=== PATIENT | male | born 1945 | race Caucasian/White ===

== ENCOUNTER → 2017-01-05 | Outpatient (CLI) | payer MEDICARE, OTHER ==
[~2017-01-05] MED LIST: ALLO100T PO; AMIT24CA5 PO; ATRO0.06; BENA25CA2 PO; COLA100C3 PO; CRES10TA32 PO; GLUC500C5 PO; LORT5TAB PO; METR1GEL4 EX; MIRA3350 PO; PROP1TAB29 PO; TIMO0.5S4 OP
--- NOTE | 2017-01-05 09:50 | RADONC ---
RADIATION ONCOLOGY FOLLOWUP NOTE DATE: 01/05/2017 CHART NUMBER: [id number]. DIAGNOSIS: Right tonsillar cancer. STAGE: I, T1N0M0. ECOG PERFORMANCE STATUS: Zero. FOLLOWUP NOTE: Mr. 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 The patient presents today reporting that he is doing quite well with no complaints at this time related to his radiation therapy or disease. He is having no difficulty swallowing or pain. He has some slight xerostomia. REVIEW OF SYSTEMS: The patient's review of systems is positive for some slight xerostomia but is otherwise noncontributory. The patient's review of systems is noncontributory. Denies nausea, vomiting, fevers, chills, night sweats, diplopia, headaches, anxiety or depression, anorexia, weight loss, visual disturbances, chest pain, urinary or bowel difficulties, bone pain, or neurological problems. PHYSICAL EXAMINATION: The patient's weight today is 203 pounds. This is up 5-1/2 pounds since his last visit in May. It is also up 10.5 pounds from his treatment completion date. HEENT: Exam is normocephalic, atraumatic. Extraocular movements are intact. The patient's oral cavity reveals no evidence of lesions nodularity or recurrent disease. His oropharynx is clear are as his tonsils. There is no palpable preauricular, cervical, supraclavicular, infraclavicular or axillary lymphadenopathy present. His lungs are clear to auscultation and percussion. ASSESSMENT: The patient is clinically ALOK at this time and will be seen by us again in 6 months for further followup. He is also continuing to be followed by his head and neck surgeon every few months. Laryngoscopic evaluation was deferred by us but is being done by his ENT physician. cc: Ramirez Larry MD *Zenia Murillo MD
== END ==
LOC: M ONCR 09:09
PROVIDERS: ATTEND Radiology Radiation Oncology
DX: C09.1 Malignant neoplasm of tonsillar pillar (anterior) (posterior) (principal)

== ENCOUNTER → 2017-03-23 | Outpatient (REF) | payer MEDICARE, OTHER ==
[~2017-03-23] MED LIST changes: -AMIT24CA5 PO; +AMIT24CA7 PO; -COLA100C3 PO; +COLA100C5 PO
== END ==
LOC: M LAB REF 12:18
PROVIDERS: ATTEND Internal Medicine
DX: R06.02 Shortness of breath (principal)

== ENCOUNTER → 2017-03-30 | Outpatient (CLI) | payer MEDICARE, OTHER ==
--- NOTE | 2017-03-30 22:19 | REP ---
PET/CT: History: Diagnosing lung carcinoma. Comparisons: Comparison CT study March 25, 2017. Pleural based mass lesion right middle lobe. TECHNIQUE: 47 minutes following the intravenous injection of a 10.7 mCi dose of F-18 FDG, three-dimensional PET scintigraphy is acquired from the skull base to the proximal thighs. Triplanar noncontrast CT scanning is acquired through the same anatomic range for attenuation correction, and image registration with scan parameters optimized to minimize radiation exposure to the patient. PET scintigraphy and CT datasets were fused and displayed on a workstation with multiplanar and projection display capability. PET/CT Findings: There is low level FDG accumulation in the peripheral pleural-based area of consolidation in the right middle lobe of the lung. Maximum standard uptake value is 5.9. This is most prominent in the medial aspect of this opacity. The opacity is essentially unchanged from the March 25, 2017 prior study. No definite mass lesion is seen here. No other abnormal thoracic hypermetabolic uptake is seen. No abnormal vascular uptake is seen. In the abdomen and pelvis normal FDG distribution is observed. Impression: Mildly hypermetabolic uptake in the peripheral wedge shaped infiltrate in the right middle lobe anteriorly. Malignancy cannot be excluded. Other differential possibilities include pneumonia and pulmonary infarction. No other abnormal hypermetabolic uptake is appreciated. Signed by Major Mercedes MD 03/31/2017 09:34 A
== END ==
LOC: M PLARAD 13:28
PROVIDERS: ATTEND Internal Medicine
DX: R91.8 Other nonspecific abnormal finding of lung field (principal)
CPT/HCPCS: 78815; A9552

== ENCOUNTER → 2017-04-06 | Outpatient (CLI) | payer MEDICARE, OTHER ==
--- NOTE | 2017-04-06 13:20 | REP ---
BILATERAL LOWER EXTREMITY DUPLEX VEINS: HISTORY: Chest pain. RIGHT LOWER EXTREMITY: There are no filling defects in the deep venous system. The deep venous system is patent. IMPRESSION: There is no deep venous thrombosis. LEFT LOWER EXTREMITY: There are no filling defects in the deep venous system. The deep venous system is patent. A small ill-defined area of increased echogenicity is present in the anterior thigh musculature. . This measures 4.2 x 1 x 1.4 cm and is of unknown etiology. IMPRESSION: 1. There is no deep venous thrombosis. 2. There is a 4.2 cm ill-defined area of increased echogenicity in the anterior thigh musculature of uncertain etiology. Signed by Hasmukh Short MD 04/06/2017 01:49 P
== END ==
LOC: M RAD 11:42
PROVIDERS: ATTEND Internal Medicine Pulmonary Disease
DX: R07.1 Chest pain on breathing (principal)

== ENCOUNTER → 2017-04-12 | Outpatient (CLI) | payer MEDICARE, OTHER ==
--- NOTE | 2017-04-12 12:50 | REP ---
CT of the left femur: Comparison is the deep vein duplex ultrasound dated 04/06/2017 that identified a 4.2 cm zone of ill-defined increased echogenicity in the anterior left thigh musculature of uncertain etiology. On the CT study today, no soft tissue mass or abnormality is identified anteriorly in the left thigh. There is no mass, cyst, periosteal reactive change lytic, blastic or destructive change in the femur. Impression: Negative CT of the left femur. Consider MRI for follow up. Signed by Danny Lorenzana MD 04/12/2017 12:41 P
== END ==
LOC: M RAD 10:10
PROVIDERS: ATTEND Internal Medicine Pulmonary Disease
DX: R93.7 Abnormal findings on diagnostic imaging of other parts of musculoskeletal system (principal)

== ENCOUNTER 2017-12-12 05:35 | Day surgery (SDC) | payer MEDICARE, OTHER ==
[2017-12-12] MEDS ORDERED: SLF 3 ML SYR IV (06:00)
[2017-12-12] MEDS ORDERED: ACETAMINOPHEN 325 MG TAB PO (06:00)
[2017-12-12] MEDS: LIDOCAINE 3.5 % 1ML OPHTH TOPICAL GEL OU (06:25)
[2017-12-12] MEDS: CYCLOPENTOLATE 2% OPHTH SOLN 2ML BTL OD (06:28)
[2017-12-12] MEDS: TROPICAMIDE 1% OPHTH SOLN 2ML OD (06:28)
[2017-12-12] MEDS: PHENYLEPHRINE 2.5% OPHTH SOL 2ML OD (06:28)
[2017-12-12] MEDS: OFLOXACIN 0.3 % (OCUFLOX) OPTH SOL 5ML OD (06:28)
[2017-12-12] MEDS: SLF 3 ML SYR IV (06:50)
[2017-12-12] MEDS ORDERED: PHENYLEPHRINE HCL 10 % OPHTH. SOL 5ML OD (07:00)
[2017-12-12] MEDS ORDERED: PROPARACAINE 0.5% OPHTH SOL 15ML OD (07:01)
[2017-12-12] MEDS: CEFUROXIME 1MG/0.1ML INTRACAMERAL INJ As Ordered ×2 (07:21→07:36)
[2017-12-12] MEDS ORDERED: MIDAZOLAM INJ 2 MG/2 ML VIAL (J2250) As Ordered (07:25)
[2017-12-12] MEDS ORDERED: fentaNYL 100 MCG/2 ML INJECTION (J3010) As Ordered (07:25)
[2017-12-12] MEDS: LIDOCAINE 1% SDV 5 ML VIAL As Ordered (07:35)
[2017-12-12] MEDS: POVIDONE-IODINE 5% OPHTH PREP SOL 30ML As Ordered (07:35)
[2017-12-12] MEDS: HEALON DUET (HEALON 10MG/ML 0.55ML & HEALON ENDOCOAT 30MG/ML 0.85ML) As Ordered (07:35)
[2017-12-12] MEDS: BSS with VANC/TOB/EPI for EYE CASES IR (07:36)
[2017-12-12] MEDS: KETOROLAC 0.5% OPHTH SOLN OD (08:15)
[2017-12-12] MEDS ORDERED: TRIMETHOBENZAMIDE 300 MG CAP PO (08:15)
[2017-12-12] MEDS ORDERED: LIDOCAINE 2% INJ 100 MG/5 ML SDV (FOR ANES.) As Ordered (09:42)
[2017-12-12] MEDS ORDERED: PROPOFOL 200 MG/20 ML VIAL As Ordered (09:43)
== END 2017-12-12 08:20 | disposition home or self-care (01) ==
LOC: M SDC 05:35
DX: H26.9 Unspecified cataract (principal); H40.9 Unspecified glaucoma; R06.83 Snoring; M10.9 Gout, unspecified; K58.1 Irritable bowel syndrome with constipation; E78.5 Hyperlipidemia, unspecified; G44.229 Chronic tension-type headache, not intractable; Z88.2 Allergy status to sulfonamides; Z79.899 Other long term (current) drug therapy; Z79.82 Long term (current) use of aspirin; Z86.711 Personal history of pulmonary embolism; Z92.21 Personal history of antineoplastic chemotherapy; Z85.46 Personal history of malignant neoplasm of prostate; Z85.818 Personal history of malignant neoplasm of other sites of lip, oral cavity, and pharynx; Z87.891 Personal history of nicotine dependence
CPT/HCPCS: 66984

== ENCOUNTER 2018-04-13 13:01 | Emergency (ER) | payer MEDICARE, OTHER ==
[2018-04-13 14:30] LABS: ANION GAP 6 MEQ/L (8-16); BLOOD UREA NITROGEN 19 MG/DL (7-18); CALCIUM LEVEL 9.3 MG/DL (8.8-10.2); CARBON DIOXIDE LEVEL 29 MEQ/L (21-32); CHLORIDE LEVEL 106 MEQ/L (98-107); CREATININE FOR GFR 1.06 MG/DL (0.70-1.30); GLOMERULAR FILTRATION RATE > 60.0 (>42); GLUCOSE, FASTING 101 MG/DL (70-100); POTASSIUM SERUM 4.4 MEQ/L (3.5-5.1); SODIUM LEVEL 141 MEQ/L (136-145)
== END 2018-04-13 15:13 | disposition home or self-care (01) ==
LOC: M ED 13:01
DX: B02.8 Zoster with other complications (principal); R07.9 Chest pain, unspecified; R94.31 Abnormal electrocardiogram [ECG] [EKG]; I10 Essential (primary) hypertension; E78.5 Hyperlipidemia, unspecified; Z88.2 Allergy status to sulfonamides
CPT/HCPCS: 71046

== ENCOUNTER → 2018-08-08 | Outpatient (REF) | payer MEDICARE, OTHER ==
[2018-08-08 12:20] LABS: BLOOD UREA NITROGEN 16 MG/DL (7-18)
[2018-08-08 12:20] LABS: CREATININE FOR GFR 1.07 MG/DL (0.70-1.30); GLOMERULAR FILTRATION RATE > 60.0 (>42)
== END ==
LOC: M LABDRAW1 11:31
DX: M50.30 Other cervical disc degeneration, unspecified cervical region (principal)
CPT/HCPCS: 82565

== ENCOUNTER 2019-09-13 10:25 | Emergency (ER) | payer MEDICARE, OTHER ==
[~2019-09-13] VITALS: Ht 182.9 cm; Wt 92.7 kg
[~2019-09-13 10:25] MED LIST changes: +ARTIDRO2 OU; +ASPI81TA26 PO; +BIMA01SOL OU; +CRES10TA PO; -CRES10TA32 PO; +HYDR-3715 PO; -PROP1TAB29 PO; +PROP20TA72 PO; -TIMO0.5S4 OP; +TIMO0.5S42 OP; +VALA1TAB64 PO
--- NOTE | 2019-09-13 11:36 | REP ---
Clinical: left sided pain and swelling. Technique: Juarez scale and color Doppler evaluation using linear high frequency transducer. Findings: Ultrasound examination of the left lower extremity deep venous structures from the common femoral vein to the popliteal vein demonstrates normal compressibility flow and wave patterns in response to respiration and augmentation. There is no evidence for deep venous thrombosis. Impression: No evidence for deep venous thrombosis. Electronically Signed by Terry Bermeo MD 09/13/2019 11:28 A
--- NOTE | 2019-09-13 11:54 | REP ---
LEFT ANKLE, FOUR VIEWS: Four views of the left ankle performed. A 6 MM calcification anteriorly at the tibiotalar joint on the lateral view may represent a small chip fracture or calcific body. Otherwise, no acute fracture or dislocation is seen. There appears to be a bone island in the calcaneus anteriorly. Ankle mortise is anatomic. There is mild soft tissue swelling. Electronically Signed by Danny Juarez MD 09/13/2019 12:31 P
[2019-09-13 12:12] VITALS: BP 144/77
== END 2019-09-13 12:14 | disposition home or self-care (01) ==
LOC: M ED 10:25
DX: S82.892A Other fracture of left lower leg, initial encounter for closed fracture (principal); X58.XXXA Exposure to other specified factors, initial encounter; Y92.89 Other specified places as the place of occurrence of the external cause; R60.0 Localized edema; E78.5 Hyperlipidemia, unspecified; Z86.711 Personal history of pulmonary embolism; Z85.21 Personal history of malignant neoplasm of larynx; Z88.2 Allergy status to sulfonamides; Z79.899 Other long term (current) drug therapy

== ENCOUNTER → 2021-01-01 | Outpatient (CLI) | payer MEDICARE, OTHER ==
[~2021-01-01] MED LIST changes: -ARTIDRO2 OU; +POLYOPD OU; +VALA1TAB5 PO; -VALA1TAB64 PO
--- NOTE | 2021-01-01 09:44 | REP ---
INDICATION: COUGH COMPARISON: 04/13/2018. TECHNIQUE: PA/Lateral FINDINGS: There is consolidative infiltrate in the right middle lobe. The left lung is clear. There is a small right pleural effusion. Heart is not significantly enlarged. There is tortuosity of the thoracic aorta. The mediastinal silhouette is unchanged. There are degenerative changes of the spine without compression deformity. IMPRESSION: Consolidative infiltrate right middle lobe with small right pleural effusion. <Electronically signed by Danny Juarez > 01/01/21 0917
== END ==
LOC: M WUC 09:24
PROVIDERS: ATTEND Physician Assistant
DX: R05 Cough (principal)

== ENCOUNTER → 2021-01-09 | Outpatient (REF) | payer MEDICARE, OTHER | LOC: M LAB REF 16:28 | PROVIDERS: ATTEND Internal Medicine | DX: B02.23 Postherpetic polyneuropathy (principal) ==

== ENCOUNTER → 2021-01-21 | Outpatient (CLI) | payer MEDICARE, OTHER ==
--- NOTE | 2021-01-21 10:17 | REP ---
INDICATION: FOLLOW UP FOR PNEUMONIA COMPARISON: 01/01/2021. TECHNIQUE: PA/Lateral FINDINGS: There is persistent infiltrate in the right middle lobe. This is slightly improved when compared to the prior study. No new infiltrate is seen. The previously noted right pleural effusion has resolved. Left lung remains clear. The heart is not significantly enlarged. The mediastinal silhouette is unchanged. There are degenerative changes of the spine. IMPRESSION: Slight improvement of dense right middle lobe infiltrate. Right pleural effusion has resolved. Recommend continued follow-up. <Electronically signed by Danny Juarez > 01/21/21 1014
== END ==
LOC: M WUC 09:49
PROVIDERS: ATTEND Internal Medicine
DX: J18.9 Pneumonia, unspecified organism (principal)

== ENCOUNTER → 2021-02-27 | Outpatient (CLI) | payer MEDICARE, OTHER ==
[~2021-02-27] MED LIST changes: +IPRA6SP
== END ==
LOC: M LABSMTC 10:55
PROVIDERS: ATTEND Anesthesiology
DX: Z01.818 Encounter for other preprocedural examination (principal); Z11.52 Encounter for screening for COVID-19

== ENCOUNTER → 2025-04-03 | Outpatient (REF) | payer MEDICARE, OTHER ==
[~2025-04-03] MED LIST changes: -AMIT24CA7 PO; +ARTIDRO4 OU; +LUBI24CA32 PO; -POLYOPD OU
== END ==
LOC: M LAB REF 11:35
PROVIDERS: ATTEND Internal Medicine
DX: Z11.59 Encounter for screening for other viral diseases (principal)